=== PATIENT | female | born 2000 | race African-American/Black ===

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

== ENCOUNTER 2018-04-29 21:42 | Emergency (ER) | payer OTHER ==
[~2018-04-29] VITALS: Ht 172.7 cm; Wt 99.8 kg
[2018-04-29 22:00] VITALS: BP 142/72
[2018-04-29] MEDS ORDERED: ONDA4TAB10 SL (22:45)
--- NOTE | 2018-04-29 22:45 | PHYS DOC ---
Past Medical History Past Medical History: Bipolar Additional Past Medical Histor: ADHD, ectopic Past Surgical History: No Surgical History Alcohol Use: None Drug Use: None Adult General Chief Complaint Chief Complaint: FEVER HPI HPI Patient is a 18 year old female who presents with feeling feverish after vomiting several times. Patient reports she was taking a nap this afternoon and when she woke up she felt hot and vomited several times. Patient is approximately 4 months . She has not had any OB follow-up as she has just discovered that she is . She denies any other symptoms. Review of Systems Review of Systems Constitutional: Reports feeling feverish HENT: Denies nasal congestion or sore throat [] Respiratory: Denies cough or shortness of breath [] Cardiovascular: No additional information not addressed in HPI [] GI: Reports nausea and vomiting. Denies abdominal pain, diarrhea [] Integument: Denies rash or skin lesions [] Neurologic: Denies headache, focal weakness or sensory changes [] All other systems were reviewed and found to be within normal limits, except as documented in this note. Allergies Allergies Allergies Coded Allergies Type Severity Reaction Last Updated Verified pollen extracts Allergy Intermediate sneezing 01/04/17 Yes Physical Exam Physical Exam Constitutional: Well developed, well nourished, no acute distress, non-toxic appearance. [] HENT: Normocephalic, atraumatic Eyes: PERRLA, EOMI, conjunctiva normal, no discharge. [] Neck: Normal range of motion, no tenderness, supple, no stridor. [] Cardiovascular:Heart rate regular rhythm, no murmur [] Lungs & Thorax: Bilateral breath sounds clear to auscultation [] Abdomen: Bowel sounds normal, soft, no tenderness Skin: Warm, dry, no erythema, no rash. [] Neurologic: Alert and oriented X 3, normal motor function, normal sensory function, no focal deficits noted. [] Psychologic: Affect normal, judgement normal, mood normal. [] Current Patient Data Vital Signs Vital Signs Date Time Temp Pulse Resp B/P (MAP) Pulse Ox O2 Delivery O2 Flow Rate FiO2 04/29/18 22:00 98.7 89 16 142/72 (95) 99 Room Air 98.7 EKG EKG [] Radiology/Procedures Radiology/Procedures [] Course & Med Decision Making Course & Med Decision Making Pertinent Labs and Imaging studies reviewed. (See chart for details) Quick look OB ultrasound at bedside, good movement, heart rate approximately 140. Plan: Zofran Rx, follow-up with OB, return precautions reviewed Magnolia Disclaimer Magnolia Disclaimer This electronic medical record was generated, in whole or in part, using a voice recognition dictation system. Departure Departure Impression: Primary Impression: Additional Impression: Emesis Disposition: 01 HOME, SELF-CARE Condition: GOOD Referrals: NO PCP (PCP) Patient Instructions: Scripts Ondansetron (ZOFRAN ODT) 4 Mg Tab.rapdis 1 TAB SL Q8HRS, #30 TAB Prov: JIHAN QUESADA [employer]NAGER 04/29/18 Problem Qualifiers Primary Impression: Weeks of gestation: unspecified Qualified Codes: Z34.90 - Encounter for supervision of normal , unspecified, unspecified trimester Additional Impression: Emesis Vomiting type: unspecified Vomiting Intractability: non-intractable Nausea presence: with nausea Qualified Codes: R11.2 - Nausea with vomiting, unspecified JIHAN QUESADA [employer] SAL[employer] MANAGER Apr 29, 2018 22:45
== END 2018-04-29 22:49 | disposition home or self-care (01) ==
LOC: ER 21:42
DX: O21.9 Vomiting of pregnancy, unspecified (principal); R50.9 Fever, unspecified; O99.342 Other mental disorders complicating pregnancy, second trimester; F31.9 Bipolar disorder, unspecified; F90.9 Attention-deficit hyperactivity disorder, unspecified type; Z3A.16 16 weeks gestation of pregnancy; Z91.048 Other nonmedicinal substance allergy status
CPT/HCPCS: 99284-25

== ENCOUNTER 2018-05-27 22:39 | Emergency (ER) | payer OTHER ==
[~2018-05-27] VITALS: Ht 172.7 cm; Wt 111.1 kg
[~2018-05-27 22:39] MED LIST: ONDA4TAB10 SL
[2018-05-27 23:01] VITALS: BP 141/90
--- NOTE | 2018-05-27 23:38 | PHYS DOC ---
Past Medical History Past Medical History: No Pertinent History Additional Past Medical Histor: ADHD, ectopic Past Surgical History: No Surgical History Alcohol Use: None Drug Use: None Adult General Chief Complaint Chief Complaint: SKIN PROBLEM HPI HPI Patient is a 18 year old female who presents with non itching red eczema or dermatitis type rash to her face and down her back x 2 weeks. Patient states her 1 st the same thing happened and then it went away. The patient is now 5 months with her second child and the rash is back. Review of Systems Review of Systems Constitutional: Denies fever or chills [] Eyes: Denies change in visual acuity, redness, or eye pain [] HENT: Denies nasal congestion or sore throat [] Respiratory: Denies cough or shortness of breath [] Cardiovascular: No additional information not addressed in HPI [] GI: Denies abdominal pain, nausea, vomiting, bloody stools or diarrhea [] : Denies dysuria or hematuria [] Musculoskeletal: Denies back pain or joint pain [] Integument: Face and back rash. Denies skin lesions [] Neurologic: Denies headache, focal weakness or sensory changes [] Endocrine: Denies polyuria or polydipsia [] All other systems were reviewed and found to be within normal limits, except as documented in this note. Current Medications Current Medications Current Medications Medications (Trade) Dose Ordered Sig/Peace Start Time Stop Time Status Last Admin Dose Admin Dexamethasone (Decadron) 10 mg 1X ONCE 05/27/18 23:45 05/27/18 23:46 DC 05/27/18 23:45 10 MG Allergies Allergies Allergies Coded Allergies Type Severity Reaction Last Updated Verified pollen extracts Allergy Intermediate sneezing 01/04/17 Yes Physical Exam Physical Exam Constitutional: Well developed, well nourished, no acute distress, non-toxic appearance. [] HENT: Normocephalic, atraumatic, bilateral external ears normal, oropharynx moist, no oral exudates, nose normal. [] Eyes: PERRLA, EOMI, conjunctiva normal, no discharge. [] Neck: Normal range of motion, no tenderness, supple, no stridor. [] Cardiovascular:Heart rate regular rhythm, no murmur [] Lungs & Thorax: Bilateral breath sounds clear to auscultation [] Abdomen: Bowel sounds normal, soft, no tenderness, no masses, no pulsatile masses. [] Skin: Warm, dry, no erythema, face ane back dermatitis rash. [] Back: No tenderness, no CVA tenderness. [] Extremities: No tenderness, no cyanosis, no clubbing, ROM intact, no edema. [] Neurologic: Alert and oriented X 3, normal motor function, normal sensory function, no focal deficits noted. [] Psychologic: Affect normal, judgement normal, mood normal. [] Current Patient Data Vital Signs Vital Signs Date Time Temp Pulse Resp B/P (MAP) Pulse Ox O2 Delivery O2 Flow Rate FiO2 05/27/18 23:01 98.1 99 18 141/90 (107) 99 Room Air 98.1 EKG EKG [] Radiology/Procedures Radiology/Procedures [] Course & Med Decision Making Course & Med Decision Making Patient is a 18 year old female who presents with non itching red eczema or dermatitis type rash to her face and down her back x 2 weeks. Patient states her 1 st the same thing happened and then it went away. The patient is now 5 months with her second child and the rash is back. The patietn denies recent illness or fever. Patient is dexamethasone in the ED. Patient is to follow up with her OB doctor on wednesday and to return if worse. I did go over this patient with Dr Bear and he agrees with the plan of care. [] Dragon Disclaimer Dragon Disclaimer This electronic medical record was generated, in whole or in part, using a voice recognition dictation system. Departure Departure Impression: Primary Impression: Eczema Disposition: HOME, SELF-CARE Condition: STABLE Referrals: NO PCP (PCP) Patient Instructions: Eczema Additional Instructions: Follow up with your OB doctor. Use Benadryl if needed. Attending Signature Attending Signature I have reviewed the PA/BRASS[employer] INSTRUMENT REPAIRER's note and plan of care. I was available for consultation as needed during the patient's visit in the emergency department. I agree with the clinical impression, plan, and disposition. Problem Qualifiers Primary Impression: Eczema Eczema type: unspecified Qualified Codes: L30.9 - Dermatitis, unspecified OSCAR CARABALLO APRN May 27, 2018 23:38 MIGUEL BEAR DO May 29, 2018 04:30
[2018-05-27] MEDS ORDERED: DEXAMETHASONE 4 MG TABLET PO ONE (23:45)
== END 2018-05-27 23:50 | disposition home or self-care (01) ==
LOC: ER 22:39
DX: O99.712 Diseases of the skin and subcutaneous tissue complicating pregnancy, second trimester (principal); L30.9 Dermatitis, unspecified; F90.9 Attention-deficit hyperactivity disorder, unspecified type; Z3A.20 20 weeks gestation of pregnancy; Z88.8 Allergy status to other drugs, medicaments and biological substances
CPT/HCPCS: 99282; J8540